=== PATIENT | female | born 1995 | race Two or more races ===

== ENCOUNTER 2018-11-14 15:37 | Emergency (ER) | payer OTHER ==
[~2018-11-14] VITALS: Ht 157.5 cm; Wt 86.2 kg
[~2018-11-14 15:37] MED LIST: IMODIUM A-D2 MG PO; KETO10TA2 PO; MEDROL4 MG PO; MOBIC15 MG PO
== END 2018-11-14 18:28 | disposition home or self-care (01) ==
LOC: ER 15:37
DX: J06.9 Acute upper respiratory infection, unspecified (principal)

== ENCOUNTER 2019-05-12 22:25 | Emergency (ER) | payer OTHER ==
[~2019-05-12] VITALS: Ht 157.5 cm; Wt 86.2 kg
[2019-05-13] MEDS ORDERED: ZEBUTAL 50-3251 EACH PO (05:00)
== END 2019-05-13 05:10 ==
LOC: ER 22:25
DX: R51 Headache (principal); R50.9 Fever, unspecified

== ENCOUNTER 2019-06-13 22:25 | Emergency (ER) | payer OTHER ==
[~2019-06-13] VITALS: Ht 157.5 cm; Wt 86.2 kg
[~2019-06-13 22:25] MED LIST changes: +ZEBUTAL 50-3251 EACH PO
[2019-06-13] MEDS ORDERED: IMITREX50 MG (22:58)
[2019-06-13] MEDS ORDERED: VERAPAMIL SR120 MG (22:58)
== END 2019-06-14 07:16 | disposition home or self-care (01) ==
LOC: ER 22:25
DX: R51 Headache (principal)

== ENCOUNTER 2021-12-24 13:52 | Emergency (ER) | payer OTHER ==
[~2021-12-24] VITALS: Ht 157.5 cm; Wt 84.4 kg
[~2021-12-24 13:52] MED LIST changes: +IMITREX50 MG; +VERAPAMIL SR120 MG
== END 2021-12-24 15:38 | disposition home or self-care (01) ==
LOC: ER 13:52
DX: U07.1 COVID-19 (principal); Z88.5 Allergy status to narcotic agent

== ENCOUNTER 2022-06-19 12:36 | Emergency (ER) | payer OTHER ==
[~2022-06-19] VITALS: Ht 157.5 cm; Wt 86.2 kg
[2022-06-19] MEDS ORDERED: CARAFATE1 GM PO (20:19)
[2022-06-19] MEDS ORDERED: LEVSIN/SL0.125 MG SL (20:19)
[2022-06-19] MEDS ORDERED: PEPCID AC20 MG PO (20:19)
== END 2022-06-19 20:46 | disposition home or self-care (01) ==
LOC: ER 12:36
DX: K29.70 Gastritis, unspecified, without bleeding (principal); Z88.6 Allergy status to analgesic agent